=== PATIENT | female | born 1960 | race Caucasian/White ===

== ENCOUNTER 2017-05-21 10:17 | Inpatient (IN) | payer BC ==
[~2017-05-21] VITALS: Ht 167.6 cm; Wt 51.6 kg
[2017-05-21 12:20] LABS: BASOPHIL (%) 0.7 % (0-1); BASOPHIL COUNT 0.1 K/uL (0-0.1); EOSINOPHIL (%) 0.3 % (0-5); HEMATOCRIT 43.7 % (36.0-46.0); HEMOGLOBIN 14.8 G/DL (11.9-15.5); IMMATURE GRANULOCYTE (%) 0.5 % (0.0-0.7); LYMPHOCYTE (%) 12.5 % (15-42); LYMPHOCYTE COUNT 0.9 K/uL (1.0-2.8); MCHC 33.9 G/DL (30.0-36.0); MCV 88.6 FL (83-99); MONOCYTE (%) 13.2 % (3-12); NEUTROPHIL (%) 72.8 % (45-76); NEUTROPHIL COUNT 5.5 K/uL (1.8-6.4); PLATELET COUNT 308 K/uL (156-360); RBC DIS.WIDTH-SD 39.2 % (39-53); RED BLOOD COUNT 4.93 M/uL (3.80-5.20); WHITE BLOOD COUNT 7.5 K/uL (4.1-10.2)
[2017-05-21 12:28] LABS: ALBUMIN 4.9 g/dL (3.2-4.8)
[2017-05-21 12:29] LABS: CHLORIDE 95 mEq/L (99-109); POTASSIUM 3.4 mEq/L (3.7-5.4); SODIUM 137 mEq/L (136-147)
[2017-05-21 12:31] LABS: GLUCOSE 98 mg/dL (70-99); TOTAL PROTEIN 7.7 g/dL (6.4-8.3)
[2017-05-21 12:33] LABS: TOTAL BILIRUBIN 0.5 mg/dL (0.0-1.0)
[2017-05-21 12:34] LABS: ALKALINE PHOSPHATASE 85 IU/L (3-129)
[2017-05-21 12:35] LABS: CREATININE 0.8 mg/dL (0.6-1.3); GFR ESTIMATE (CALCULATED) > 59 mL/min/
[2017-05-21 12:36] LABS: AST (GOT) 17 IU/L (2-34); UREA NITROGEN (BUN) 10 mg/dL (9-23)
[2017-05-21 12:38] LABS: ALT (GPT) 18 IU/L (3-49); LIPASE 36 U/L (1.0-51.0)
[2017-05-21 12:41] LABS: APPEARANCE SL.HAZY ((CLEAR)); BILIRUBIN NEGATIVE; BLOOD SMALL; COLOR AMBER ((YELLOW)); GLUCOSE (STRIP) NEGATIVE; KETONES 80; LEUKOCYTES NEGATIVE; NITRITE NEGATIVE; PROTEIN (STRIP) 100; SPECIFIC GRAVITY 1.027 (1.000-1.030); UROBILINOGEN 0.2 MG/DL (0.2-1.0)
[2017-05-21 12:53] LABS: BACTERIA RARE /HPF; EPITHELIAL CELLS RARE /HPF; MUCUS 4+ /LPF; RED BLOOD CELLS 0-5 /HPF (0-5); UCUL ADDED? NO; WHITE BLOOD CELLS 0-5 /HPF (0-5)
[2017-05-21 22:30] VITALS: BP 123/58
[2017-05-22 03:35] VITALS: BP 114/60
[2017-05-22 06:13] LABS: HEMATOCRIT 32.8 % (36.0-46.0); HEMOGLOBIN 11.1 G/DL (11.9-15.5); MCH 30.2 PG (29.0-34.0); MCHC 33.8 G/DL (30.0-36.0); MCV 89.1 FL (83-99); PLATELET COUNT 228 K/uL (156-360); RBC DIS.WIDTH-CV 12.1 % (11.8-14.6); RBC DIS.WIDTH-SD 39.7 % (39-53); RED BLOOD COUNT 3.68 M/uL (3.80-5.20); WHITE BLOOD COUNT 6.8 K/uL (4.1-10.2)
[2017-05-22 06:34] LABS: CHLORIDE 105 MEQ/L (99-109); CREATININE 0.7 MG/DL (0.6-1.3); GFR ESTIMATE (CALCULATED) > 59 mL/min/; GLUCOSE 126 mg/dL (70-99); POTASSIUM 3.3 MEQ/L (3.7-5.4); SODIUM 138 MEQ/L (136-147); UREA NITROGEN (BUN) 7 mg/dL (9-23)
[2017-05-22 06:45] VITALS: BP 112/64
[2017-05-22 12:02] VITALS: BP 115/56
[2017-05-22 16:10] VITALS: BP 115/65
[2017-05-22 19:04] VITALS: BP 115/57
[2017-05-22 23:04] VITALS: BP 100/54
[2017-05-23 03:55] VITALS: BP 108/61
[2017-05-23 08:30] VITALS: BP 114/68
[2017-05-23 16:00] VITALS: BP 131/67
[2017-05-23 23:52] VITALS: BP 131/68
[2017-05-24] MEDS ORDERED: NORCO 5/3251 TABLET PO (07:50)
[2017-05-24 08:00] VITALS: BP 131/74
== END 2017-05-24 09:59 | disposition home or self-care (01) | DRG 329 ==
LOC: EME 10:17 → SDC 18:37 → 2EASTP 20:11 → 2SOUTH 20:11 → ENRESERV 20:14 → 2EASTP 22:06
PROVIDERS: Emergency Medicine; Surgery
DX: K41.30 Unilateral femoral hernia, with obstruction, without gangrene, not specified as recurrent (principal); K55.029 Acute infarction of small intestine, extent unspecified; Z88.2 Allergy status to sulfonamides
CPT/HCPCS: 74177; 80048; 80053; 81003; 83690; 85025; 85027; 88307; 93005; 99281; 99285; J0330; J0690; J1170; J1335; J1650; J1885; J2405; J2710; J3010; J3480; J7030; J7050; S0028; S0074